=== PATIENT | female | born 2000 | race Caucasian/White ===

== ENCOUNTER 2022-07-30 07:40 | Emergency (ER) | payer SELFPAY ==
[~2022-07-30] VITALS: Ht 165.1 cm; Wt 56.6 kg
--- NOTE | 2022-07-30 07:59 | ED Integumentary General ---
"General Stated Complaint: FALL IN SHOWER | PELVIC INJ Source: patient Exam Limitations: no limitations History of Present Illness Date Seen by Provider: Jul 30, 2022 Time Seen by Provider: 07:50 Initial Comments Patient is a 22-year-old female who presents to the emergency department with a chief complaint of laceration to the genitalia. Patient had been drinking last night, all night. She was getting in the shower around 5 AM this morning. She was leaning against the shower door, slipped and fell landing on the frame of the shower door. Patient had significant amounts of vaginal bleeding she states. She has not urinated since the time of the fall. No other complaints of injury. Last tetanus shot greater than 5 years ago. She did take 4 ibuprofen and 2 Tylenol around 5:30 AM. Last menstrual cycle was a week ago. She uses condoms, no oral control or implanted control Timing/Duration: this morning (around 0500) Severity: severe Location: genitalia Possible Cause: other (fall) Associated Symptoms: malaise Allergies and Home Medications Allergies Coded Allergies: adhesive (Verified Allergy, Unknown, 07/30/22) nickel (Verified Allergy, Unknown, 07/30/22) Patient Home Medication List Home Medication List Reviewed: Yes Review of Systems Review of Systems Constitutional: see HPI Respiratory: no symptoms reported Gastrointestinal: no symptoms reported Genitourinary: pain, other (bleeding from vagina) Musculoskeletal: no symptoms reported Physical Exam Vital Signs Vital Signs - First Documented 07/30/22 07:50 Temp 36.7 Pulse 117 Resp 19 B/P (MAP) 108/64 (79) Pulse Ox 98 O2 Delivery Room Air Capillary Refill : General Appearance: WD/WN, mild distress HEENT: PERRL/EOMI, other (upper and lower eyelid swelling (crying)) Neck: full range of motion Cardiovascular: regular rate, rhythm (tachy) Respiratory: no respiratory distress, no accessory muscle use Extremities: normal range of motion, normal inspection Neurologic/Psychiatric: alert, normal mood/affect, oriented x 3 Skin: normal color, warm/dry, other (laceration just lateral to right labia majora, 4cm, mild bleeding) Procedures/Interventions Wound Location: External Genitalia Other Wound Location right lateral labia Wound Length (cm): 4 Wound's Depth, Shape: superficial, linear, sub Q Wound Explored: clean Irrigated w/ Saline (ccs): 50 Anesthesia: Lidocaine w/ Epi Volume Anesthetic (ccs): 7 Suture: Prolene Suture Size: 5-0 Number of Sutures: 6 Layer Closure?: 1 Sterile Dressing Applied?: Yes Progress/Results/Core Measures Results/Orders My Orders Orders - AZEEM SILVERMAN MD Dipht,Pertuss(Acell),Tet Adult (Boostrix (07/30/22 08:30) Lidocaine/Epi 2% 1:100,000 (Xylocaine/Ep (07/30/22 08:30) Lidocaine/Epi Mpf 2% 1:200,000 (Xylocain (07/30/22 08:43) Medications Given in ED Current Medications Medications Dose Ordered Sig/Jermaine Route Start Time Stop Time Status Last Admin Dose Admin Diphtheria/ Tetanus/Acell Pertussis 0.5 ml ONCE ONCE IM 07/30/22 08:30 07/30/22 08:31 DC 07/30/22 08:48 0.5 ML Lidocaine/ Epinephrine 20 ml STK-MED ONCE .ROUTE 07/30/22 08:43 07/30/22 08:45 DC 07/30/22 08:52 20 ML Vital Signs/I&O 07/30/22 07:50 Temp 36.7 Pulse 117 Resp 19 B/P (MAP) 108/64 (79) Pulse Ox 98 O2 Delivery Room Air Departure Impression Primary Impression: Laceration of labia majora Qualified Codes: S31.41XA - Laceration without foreign body of vagina and vulva, initial encounter Disposition: 01 HOME, SELF-CARE Condition: Improved Departure-Patient Inst. Decision time for Depature: 09:32 Referrals: FEDE BORJA MD (PCP/Family) Primary Care Physician Patient Instructions: Laceration Repair With Stitches ED, Laceration Repair With Stitches (DC) Add. Discharge Instructions: Do not get in the shower today, you can wash the area gently with a warm soapy washcloth. Pat to dry do not rub. Keep a dry gauze dressing over the stitches for 2 or [address] a little triple antibiotic ointment over the stitches for 2 days twice a day. [id number] ibuprofen 3 tablets which is 600 mg every 6 hours with food as needed for pain. Monitor the area for increased redness, swelling and pain or drainage. Return to the emergency room if any of these develop. The stitches will need to be removed in 10 days. You can come back to the emergency room as it is a part of this visit to have a nurse remove them. Work/School Note: Work Release Form Date Seen in the Emergency Department: Jul 30, 2022 Return to Work: Aug 01, 2022 Images Female/Male 1 - Laceration AZEEM SILVERMAN MD Jul 30, 2022 07:59"
[2022-07-30] MEDS ORDERED: TETANUS,DIPTH,PERTUSS P/F (BOOSTRIX) 0.5 ML VIAL IM ONE (08:30)
[2022-07-30] MEDS ORDERED: LIDOCAINE/EPI 2% 1:100,00 (XYLOCAINE) 20 ML VIAL INJ ONE (08:30)
[2022-07-30] MEDS ORDERED: LIDOCAINE/EPI 2% 1:200,00 (XYLOCAINE) 20 ML VIAL ONE (08:43)
[2022-07-30 09:42] VITALS: BP 108/64
== END 2022-07-30 09:42 | disposition home or self-care (01) ==
LOC: ER 07:45
DX: S31.41XA Laceration without foreign body of vagina and vulva, initial encounter (principal); Z23 Encounter for immunization; W18.2XXA Fall in (into) shower or empty bathtub, initial encounter
CPT/HCPCS: 12002; 90715

== ENCOUNTER 2022-08-10 12:50 | Emergency (ER) | payer SELFPAY ==
[2022-08-10 15:01] VITALS: BP 111/67
== END 2022-08-10 15:06 | disposition home or self-care (01) ==
LOC: EDUNIT# 12:50 → ER 12:54
DX: Z48.02 Encounter for removal of sutures (principal)